=== PATIENT | female | born 1940 | race Caucasian/White ===

== ENCOUNTER 2023-08-14 20:30 | Emergency (ER) | payer MEDICARE ==
[~2023-08-14] VITALS: Ht 157.5 cm; Wt 86.2 kg
[~2023-08-14 20:30] MED LIST: ASPI-12 PO; CARAL PO; DICL2.5D7 OS; DIFL5DRO2 OS; FERR47.5 PO; LOSA50TA64 PO; NAPR220C15 PO; OMEG300C3 PO; PANT40TA54 PO
[2023-08-14] MEDS: IBUPROFEN 200 MG TAB PO ONE (21:13)
[2023-08-14 21:27] LABS: BASOPHILS # (AUTO) 0.02 K/uL (0.00-0.20); BASOPHILS % (AUTO) 0.2 % (0.0-5.0); EOSINOPHILS # (AUTO) 0.01 K/uL (0.00-0.70); EOSINOPHILS % (AUTO) 0.1 % (0.0-8.0); IMMATURE GRANULOCYTE ABSOLUTE 0.04 K/uL (0-1); LYMPHOCYTES # (AUTO) 2.5 K/uL (1.0-4.8); LYMPHOCYTES % (AUTO) 27.4 % (21.0-51.0); MEAN CORPUSCULAR HEMOGLOBIN 25.8 pg (27.0-33.0); MEAN CORPUSCULAR HGB CONC 33.1 g/dL (32.0-36.0); MEAN CORPUSCULAR VOLUME 77.9 fL (79-99); MONOCYTES # (AUTO) 0.7 K/uL (0.1-1.0); MONOCYTES % (AUTO) 7.4 % (3.0-13.0); NEUTROPHILS # (AUTO) 5.9 K/uL (1.8-7.7); NEUTROPHILS % (AUTO) 64.5 % (40.0-77.0); PLATELET COUNT (AUTO) 357 K/uL (130-400); RED BLOOD CELL COUNT(AUTO) 5.39 MIL/uL (4.00-5.50); RED CELL DISTRIBUTION WIDTH 14.7 % (11.0-15.5); WHITE BLOOD COUNT (AUTO) 9.1 K/uL (4.8-10.8)
[2023-08-14 21:41] LABS: APPEARANCE,URINE CLEAR (CLEAR); BILIRUBIN,URINE NEGATIVE (NEGATIVE); COLOR,URINE YELLOW (YELLOW); GLUCOSE, URINE (UA) NEGATIVE (NEGATIVE); KETONES,URINE 10 mg/dL (NEGATIVE); LEUKOCYTE ESTERASE ,URINE 250 Leu/uL (NEGATIVE); NITRATE,URINE NEGATIVE (NEGATIVE); OCCULT BLOOD,URINE NEGATIVE (NEGATIVE); PROTEIN,URINE 10 mg/dL (NEGATIVE); UROBILINOGEN,URINE 0.2 mg/dL (0.2-1.0)
[2023-08-14 21:42] LABS: ADD UA MICROSCOPIC YES; RAPID GROUP A STREP negative (NEGATIVE)
[2023-08-14 21:44] LABS: BACTERIA,URINE RARE /HPF (None Seen); MUCUS,URINE RARE LPF (None Seen); SQUAMOUS EPITHELIAL CELL,UR RARE /HPF (0-2)
[2023-08-14 21:46] LABS: CREATININE 0.9 mg/dL (0.5-1.5); POTASSIUM 4.1 mmol/L (3.5-5.1)
[2023-08-14 21:51] LABS: SARS-CoV-2, RNA, NAAT NEGATIVE SARS CoV-2 (NEGATIVE)
[2023-08-14 21:56] LABS: INFLUENZA TYPE A Negative For Type A (NEGATIVE); INFLUENZA TYPE B Negative For Type B (NEGATIVE)
[2023-08-14] MEDS ORDERED: IBUP-2070 PO (22:55)
[2023-08-14] MEDS ORDERED: CEFTRIAXONE 1G VIAL IM ONE (23:00)
[2023-08-14] MEDS: 0.9% NACL 500ML IV.SOLN 500 ML IV ONE (23:05)
[2023-08-14] MEDS: CEFTRIAXONE 1G VIAL IVPB ONE (23:05)
[2023-08-14 23:59] VITALS: BP 138/78; PULSE 78; RESP 16; O2SAT 98
[2023-08-16] MEDS ORDERED: CARV12.511 PO (22:43)
[2023-08-16] MEDS ORDERED: AMLO-257 PO (22:43)
[2023-08-16] MEDS ORDERED: SULF1TAB42 PO (22:43)
[2023-08-17] MEDS ORDERED: ASPI-1005 PO (09:50)
[2023-08-17] MEDS ORDERED: CHOL200079 PO (09:50)
[2023-08-17] MEDS ORDERED: MELA1TAB16 PO (09:50)
[2023-08-17] MEDS ORDERED: SPIR25TA6 PO (14:12)
[2023-08-17] MEDS ORDERED: BUDE10.26 IH (14:12)
[2023-08-18] MEDS ORDERED: L. A1TAB15 PO (11:37)
== END 2023-08-15 00:08 | disposition home or self-care (01) ==
LOC: EDH 20:30
DX: S46.912A Strain of unspecified muscle, fascia and tendon at shoulder and upper arm level, left arm, initial encounter (principal); M79.601 Pain in right arm; I10 Essential (primary) hypertension; Z79.899 Other long term (current) drug therapy; Z88.5 Allergy status to narcotic agent; Z20.822 Contact with and (suspected) exposure to COVID-19; X58.XXXA Exposure to other specified factors, initial encounter; Y93.89 Activity, other specified; Y92.89 Other specified places as the place of occurrence of the external cause; Y99.8 Other external cause status
CPT/HCPCS: 99284; 96365; 71046; 87635; 80048; 85025; 87088; 87880; 87804 ×2; 81001; 36415; J0696